=== PATIENT | male | born 1960 | race American Indian/Alaskan Native ===

== ENCOUNTER 2020-01-19 08:56 | Outpatient (CLI) | payer OTHER ==
--- NOTE | 2020-01-19 11:21 | XRay Report ---
XR knee BILAT 1-2V INDICATION / CLINICAL INFORMATION: PAIN IN LEFT RIGHT KNEE. COMPARISON: None available. FINDINGS: No acute fracture. Normal alignment. Joint spaces are preserved. No destructive osseous lesion or s uspicious periosteal reaction. Impression: 1.No acute fracture. Signer Name: Stuart David MD Signed: 01/19/2020 11:16 AM Workstation Name: [email or web address]
--- NOTE | 2020-01-19 11:23 | XRay Report ---
XR spine lumbosacral 2-3V HISTORY: BACK PAIN COMPARISON: None. TECHNIQUE: 3 view(s) of the lumbar spine obtained. FINDINGS: Vertebrae: Normal alignment. Vertebral body heights are preserved. Spondylosis:Disc space heights are preserved. Moderate L4-5 facet arthropathy. Moderate right greater than left degenerative changes of the hips. IMPRESSION: 1. No significant abnormality of the lumbar spine. Signer Name: Stuart David MD Signed: 01/19/2020 11:18 AM Workstation Name: [email or web address]
== END 2020-01-19 08:57 | disposition home or self-care (01) ==
LOC: XRAY 08:56
PROVIDERS: ATTEND Internal Medicine
DX: M47.816 Spondylosis without myelopathy or radiculopathy, lumbar region (principal); M16.12 Unilateral primary osteoarthritis, left hip; M25.561 Pain in right knee; M25.562 Pain in left knee
CPT/HCPCS: 72100